=== PATIENT | female | born 1930 | race Caucasian/White ===

== ENCOUNTER → 2016-07-15 | Outpatient (CLI) | payer MEDICARE ==
[~2016-07-15] MED LIST: ASPI81 PO; MACR100C PO; OYST500T77 PO; PROBCAP4 PO; TAB-TAB PO
[2016-07-15 09:26] LABS: AUTOMATED NEUTROPHIL # 2.6 TH/MM3 (1.8-7.7); BASOPHIL # 0.1 TH/MM3 (0-0.2); BASOPHIL % 1.4 % (0.0-2.0); EOSINOPHIL # 0.1 TH/MM3 (0-0.4); EOSINOPHIL % 2.4 % (0.0-4.0); HEMATOCRIT 39.7 % (35.0-46.0); HEMO FLAGS DIFF FINAL; LYMPH % 32.8 % (9.0-44.0); LYMPHOCYTE # 1.5 TH/MM3 (1.0-4.8); MEAN CELL VOLUME 91.4 FL (80.0-100.0); MEAN CORPUSCULAR HEMOGLOBIN 29.9 PG (27.0-34.0); MEAN CORPUSCULAR HGB CONC 32.8 % (32.0-36.0); MONO % 6.9 % (0.0-8.0); NEUT % 56.5 % (16.0-70.0); PLATELET COUNT 193 TH/MM3 (150-450); RED BLOOD COUNT 4.34 MIL/MM3 (4.00-5.30); RED CELL DISTRIBUTION WIDTH 14.3 % (11.6-17.2); WHITE BLOOD COUNT 4.7 TH/MM3 (4.0-11.0)
[2016-07-15 10:06] LABS: ALKALINE PHOSPHATASE 61 U/L (45-117); ALT (GPT) 20 U/L (10-53); ANION GAP 8 MEQ/L (5-15); AST (GOT) 19 U/L (15-37); BICARBONATE 26.9 MEQ/L (21.0-32.0); BLOOD UREA NITROGEN 15 MG/DL (7-18); CHLORIDE 103 MEQ/L (98-107); GLOMERULAR FILTRATION RATE 47 ML/MIN (>89); GLUCOSE,FASTING 97 MG/DL (74-99); HDL CHOLESTEROL 72.2 MG/DL (40.0-60.0); LDL CHOLESTEROL 93 MG/DL (0-99); SODIUM (NA) 138 MEQ/L (136-145); TOTAL BILIRUBIN ADULT 0.7 MG/DL (0.2-1.0)
[2016-07-15 17:05] LABS: HEMOGLOBIN A1a 0.9 %; HEMOGLOBIN A1b 1.8 %; HEMOGLOBIN Ao 85.8 %; HEMOGLOBIN LA1C 1.8 %; HEMOGLOBIN P3 3.6 %
== END ==
LOC: PLAB 06:31
PROVIDERS: ATTEND Family Medicine
DX: E78.5 Hyperlipidemia, unspecified (principal); E03.9 Hypothyroidism, unspecified
CPT/HCPCS: 36415; 80053; 80061; 83036; 84443; 85025

== ENCOUNTER → 2017-01-21 | Outpatient (CLI) | payer MEDICARE ==
[2017-01-21 10:31] LABS: ALT (GPT) 22 U/L (10-53); ANION GAP 8 MEQ/L (5-15); AST (GOT) 21 U/L (15-37); BICARBONATE 24.9 MEQ/L (21.0-32.0); BLOOD UREA NITROGEN 13 MG/DL (7-18); CHLORIDE 104 MEQ/L (98-107); GLOMERULAR FILTRATION RATE 44 ML/MIN (>89); GLUCOSE,FASTING 93 MG/DL (74-99); POTASSIUM 3.8 MEQ/L (3.5-5.1); SODIUM (NA) 137 MEQ/L (136-145)
[2017-01-21 10:41] LABS: ALKALINE PHOSPHATASE 68 U/L (45-117); HDL CHOLESTEROL 62.3 MG/DL (40.0-60.0); LDL CHOLESTEROL 98 MG/DL (0-99); TOTAL BILIRUBIN ADULT 0.6 MG/DL (0.2-1.0)
== END ==
LOC: PLAB 06:37
PROVIDERS: ATTEND Family Medicine
DX: R89.9 Unspecified abnormal finding in specimens from other organs, systems and tissues (principal); E78.5 Hyperlipidemia, unspecified; E03.9 Hypothyroidism, unspecified
CPT/HCPCS: 36415; 80053; 80061; 84443

== ENCOUNTER 2017-02-26 11:10 | Emergency (ER) | payer MEDICARE ==
[~2017-02-26] VITALS: Ht 162.6 cm; Wt 64.0 kg
[2017-02-26 11:18] VITALS: BP 141/63; PULSE 66; RESP 19; TEMP 97.8; O2SAT 98
--- NOTE | 2017-02-26 11:23 | PD ---
HPI Chief Complaint: near-syncope Time Seen by Provider: 11:19 Travel History International Travel<30 days: No Contact w/Intl Traveler<30days: No Traveled to known affect area: No History of Present Illness HPI 86-year-old female patient presents to the ER today brought in by EMS, apparently had been feeling well today and was making a high when she started getting weak, felt woozy, and asked her to come help her. She denies any chest pains, trouble breathing, vomiting, fevers, black stools, or any other symptoms. She states that she had gone for a 3 mile walk today without issues. Modifying Factors: None Associated Signs & Symptoms: Near-syncope Risk Factors: None PFSH Past Medical History Cardiovascular Problems: No Diminished Hearing: No Deep Vein Thrombosis: Yes (LEFT LEG) Gastrointestinal Disorders: No Genitourinary: Yes Musculoskeletal: Yes Neurologic: No Reproductive: No Respiratory: No Integumentary: Yes (LICHENPLANAS) PNEUMOCCOCAL Vaccine (Year): 1 Menopausal: Yes Past Surgical History Oral Surgery: Yes (TONSILS AT AGE 7) Tonsillectomy: Yes Other Surgery: Yes Social History Alcohol Use: Yes (OCCASIONAL WINEUEN) Tobacco Use: No Substance Use: No Allergies-Medications (Allergen,Severity, Reaction): Coded Allergies: Sulfa (Sulfonamide Antibiotics) (Unverified Allergy, Severe, rash, ) Reported Meds & Prescriptions Reported Meds & Active Scripts Active Reported Calcium 500 +D (Calcium Carbonate-Cholecalciferol) 500-400 Mg-Unit Tab 1 Tab PO DAILY Multiple Vitamin 1 Tab 1 Tab PO DAILY Aspirin 81 Mg Chew 162 Mg CHEW DAILY Review of Systems Except as stated in HPI: all other systems reviewed are Neg Physical Exam Narrative GENERAL: Well-developed elderly white female patient currently in mild distress. Awake and oriented 3. SKIN: Focused skin assessment warm/dry. HEAD: Atraumatic. Normocephalic. EYES: Pupils equal and round. No scleral icterus. No injection or drainage. ENT: No nasal bleeding or discharge. Mucous membranes pink and moist. NECK: Trachea midline. No JVD. CARDIOVASCULAR: Regular rate and rhythm. No murmur appreciated. RESPIRATORY: No accessory muscle use. Clear to auscultation. Breath sounds equal bilaterally. GASTROINTESTINAL: Abdomen soft, non-tender, nondistended. Hepatic and splenic margins not palpable. MUSCULOSKELETAL: No obvious deformities. No clubbing. No cyanosis. No edema. NEUROLOGICAL: Awake and alert. No obvious cranial nerve deficits. Motor grossly within normal limits. Normal speech. No pronator drift. PSYCHIATRIC: Appropriate mood and affect; insight and judgment normal. Data Data Last Documented VS Vital Signs Date Time Temp Pulse Resp B/P (MAP) Pulse Ox O2 Delivery O2 Flow Rate FiO2 02/26/17 11:35 98 Room Air 02/26/17 11:33 68 18 126/58 (80) 75 18 126/60 (82) 68 18 110/57 (74) 02/26/17 11:18 97.8 Orders Orders Electrocardiogram (02/26/17 11:19) Complete Blood Count With Diff (02/26/17 11:19) Comprehensive Metabolic Panel (02/26/17 11:19) Magnesium (Mg) (02/26/17 11:19) Ckmb (Isoenzyme) Profile (02/26/17 11:19) Troponin I (02/26/17 11:19) Act Partial Throm Time (Ptt) (02/26/17 11:19) Prothrombin Time / Inr (Pt) (02/26/17 11:19) Urinalysis - C+S If Indicated (02/26/17 11:19) Chest, Single Ap (02/26/17 11:19) Ct Brain W/O Iv Contrast(Rout) (02/26/17 11:19) Ecg Monitoring (02/26/17 11:19) Iv Access Insert/Monitor (02/26/17 11:19) Oximetry (02/26/17 11:19) Sodium Chloride 0.9% Flush (Ns Flush) (02/26/17 11:30) Orthostatic Vital Signs (02/26/17 11:19) Labs Laboratory Tests Test 02/26/17 11:55 02/26/17 13:00 White Blood Count 6.2 TH/MM3 Red Blood Count 3.80 MIL/MM3 Hemoglobin 12.0 GM/DL Hematocrit 35.2 % Mean Corpuscular Volume 92.6 FL Mean Corpuscular Hemoglobin 31.6 PG Mean Corpuscular Hemoglobin Concent 34.2 % Red Cell Distribution Width 13.9 % Platelet Count 176 TH/MM3 Mean Platelet Volume 8.1 FL Neutrophils (%) (Auto) 67.6 % Lymphocytes (%) (Auto) 22.7 % Monocytes (%) (Auto) 7.2 % Eosinophils (%) (Auto) 1.4 % Basophils (%) (Auto) 1.1 % Neutrophils # (Auto) 4.2 TH/MM3 Lymphocytes # (Auto) 1.4 TH/MM3 Monocytes # (Auto) 0.5 TH/MM3 Eosinophils # (Auto) 0.1 TH/MM3 Basophils # (Auto) 0.1 TH/MM3 CBC Comment DIFF FINAL Differential Comment Prothrombin Time 10.9 SEC Prothromb Time International Ratio 1.0 RATIO Activated Partial Thromboplast Time 23.8 SEC Blood Urea Nitrogen 17 MG/DL Creatinine 1.18 MG/DL Random Glucose 94 MG/DL Total Protein 6.7 GM/DL Albumin 3.7 GM/DL Calcium Level 8.6 MG/DL Magnesium Level 2.0 MG/DL Alkaline Phosphatase 57 U/L Aspartate Amino Transf (AST/SGOT) 21 U/L Alanine Aminotransferase (ALT/SGPT) 20 U/L Total Bilirubin 0.6 MG/DL Sodium Level 134 MEQ/L Potassium Level 4.2 MEQ/L Chloride Level 102 MEQ/L Carbon Dioxide Level 21.7 MEQ/L Anion Gap 10 MEQ/L Estimat Glomerular Filtration Rate 44 ML/MIN Total Creatine Kinase 89 U/L Troponin I LESS THAN 0.02 NG/ML Urine Color LIGHT-YELLOW Urine Turbidity CLEAR Urine pH 7.0 Urine Specific Index 1.008 Urine Protein NEG mg/dL Urine Glucose (UA) NEG mg/dL Urine Ketones TRACE mg/dL Urine Occult Blood NEG Urine Nitrite NEG Urine Bilirubin NEG Urine Urobilinogen LESS THAN 2.0 MG/DL Urine Leukocyte Esterase NEG Urine RBC 1 /hpf Urine WBC 2 /hpf Urine Bacteria RARE /hpf Microscopic Urinalysis Comment CULT NOT INDICATED MDM Medical Decision Making Medical Screen Exam Complete: Yes Emergency Medical Condition: Yes Medical Record Reviewed: Yes Interpretation(s) EKG shows NSR, no ST elevation or depression, and no arrhythmias. No significant T-wave inversions. Laboratory Tests Test 02/26/17 11:55 02/26/17 13:00 Red Blood Count 3.80 MIL/MM3 (4.00-5.30) Activated Partial Thromboplast Time 23.8 SEC (24.3-30.1) Creatinine 1.18 MG/DL (0.50-1.00) Sodium Level 134 MEQ/L (136-145) Estimat Glomerular Filtration Rate 44 ML/MIN (>89) Troponin I LESS THAN 0.02 NG/ML Urine Ketones TRACE mg/dL (NEG) Urine Bacteria RARE /hpf (NONE) Last [address] 02/26/17 1119 Signed Impressions: Service Date/Time: Sunday, February 26, 2017 11:44 - CONCLUSION: No acute disease. Prince Kumari MD Chest X-Ray 02/26/17 1119 Signed Impressions: Service Date/Time: Sunday, February 26, 2017 11:50 - CONCLUSION: Normal examination. Prince Kumari MD Differential Diagnosis Near-syncope: Dehydration versus metabolic issues versus dysrhythmias versus ACS Narrative Course EKG did not show significant dysrhythmias. IV fluids were given in the ER with improvement in blood pressure. Patient has no focal neurological deficits. She is not complaining of headache or photophobia, no chest pains, shortness of breath, or other symptoms. Lab work did not show any significant metabolic issues or significant signs of dehydration at this time. CT of the brain is unremarkable for any signs of acute processes. At this point, I have discussed the findings with the patient and have offered to admit her as an observation for further evaluation of syncope versus very close outpatient follow-up with primary care physician for further evaluation. She states that she would rather go home, does not want to be admitted. Unfortunately, I cannot identify the cause of the near syncopal episode, an acute processes cannot be completely ruled out. Patient should return for any worsening in symptoms, chest pains, trouble breathing, or new symptoms as needed. The plan was discussed with the patient and she states understanding. Diagnosis Primary Impression: Near syncope Additional Instructions: Follow-up to primary care physician this coming week. Return for any dizziness , chest discomfort, shortness of breath, or new symptoms. Disposition: 01 DISCHARGE HOME Condition: Stable Allyson Pimentel MD Feb 26, 2017 11:23
[2017-02-26] MEDS ORDERED: CALC1TAB12 PO (11:24)
[2017-02-26] MEDS ORDERED: MULTTAB67 PO (11:24)
[2017-02-26] MEDS ORDERED: ASPI-516 CHEW (11:24)
[2017-02-26 11:25] VITALS: O2SAT 99
[2017-02-26] MEDS ORDERED: SODIUM CHLORIDE 0.9% FLUSH 10 ML FLUSH IVF PRN (11:30)
[2017-02-26 11:33] VITALS: BP_SYST 110; BP_SYST 126; BP_DIAS 57; BP_DIAS 58; BP_DIAS 60; RESP 18
--- NOTE | 2017-02-26 12:08 | RADRPT ---
EXAM DATE/TIME: 02/26/2017 11:44 [facility] COMPARISON: CT BRAIN W/O CONTRAST, September 22, 2014, 7:42. INDICATIONS : Syncopal episode today. RADIATION DOSE: 28.32 CTDIvol (mGy) MEDICAL HISTORY : Deep venous thrombosis. SURGICAL HISTORY : None. ENCOUNTER: Initial ACUITY: 1 day PAIN SCALE: 0/10 LOCATION: cranial TECHNIQUE: Multiple contiguous axial images were obtained of the head. Using automated exposure control and adj ustment of the mA and/or kV according to patient size, radiation dose was kept as low as reasonably a chievable to obtain optimal diagnostic quality images. DICOM format image data is available electro nically for review and comparison. FINDINGS: There is marked central and cortical atrophy with dilatation of ventricular and sulcal spaces. There is no parenchymal hemorrhage, acute infarction or mass lesion identified. There are no extra-axial fluid collections appreciated. The posterior fossa is unremarkable with midline fourth ventricle. T he portion of the orbits and paranasal sinuses visualized are unremarkable. CONCLUSION: No acute disease. Prince Kumari MD on February 26, 2017 at 12:07 Board Certified Radiologist. This report was verified electronically.
[2017-02-26 12:13] LABS: AUTOMATED NEUTROPHIL # 4.2 TH/MM3 (1.8-7.7); BASOPHIL # 0.1 TH/MM3 (0-0.2); BASOPHIL % 1.1 % (0.0-2.0); EOSINOPHIL # 0.1 TH/MM3 (0-0.4); EOSINOPHIL % 1.4 % (0.0-4.0); HEMATOCRIT 35.2 % (35.0-46.0); HEMO FLAGS DIFF FINAL; LYMPH % 22.7 % (9.0-44.0); LYMPHOCYTE # 1.4 TH/MM3 (1.0-4.8); MEAN CELL VOLUME 92.6 FL (80.0-100.0); MEAN CORPUSCULAR HEMOGLOBIN 31.6 PG (27.0-34.0); MEAN CORPUSCULAR HGB CONC 34.2 % (32.0-36.0); MONO % 7.2 % (0.0-8.0); NEUT % 67.6 % (16.0-70.0); PLATELET COUNT 176 TH/MM3 (150-450); RED CELL DISTRIBUTION WIDTH 13.9 % (11.6-17.2); WHITE BLOOD COUNT 6.2 TH/MM3 (4.0-11.0)
--- NOTE | 2017-02-26 12:19 | RADRPT ---
EXAM DATE/TIME: 02/26/2017 11:50 [facility] COMPARISON: CHEST SINGLE AP, September 22, 2014, 7:24. INDICATIONS : Syncopal episode today. MEDICAL HISTORY : None. SURGICAL HISTORY : None. ENCOUNTER: Initial ACUITY: 1 day PAIN SCORE: 0/10 LOCATION: Bilateral chest FINDINGS: A single view of the chest demonstrates the lungs to be symmetrically aerated without evidence of mas s, infiltrate or effusion. The cardiomediastinal contours are unremarkable. Osseous structures are intact. CONCLUSION: Normal examination. Prince Kumari MD on February 26, 2017 at 12:18 Board Certified Radiologist. This report was verified electronically.
[2017-02-26 12:24] LABS: APTT (PATIENT) 23.8 SEC (24.3-30.1); PROTHROMBIN TIME - PATIENT 10.9 SEC (9.8-11.6)
[2017-02-26 12:27] LABS: ANION GAP 10 MEQ/L (5-15); AST (GOT) 21 U/L (15-37); BICARBONATE 21.7 MEQ/L (21.0-32.0); BLOOD UREA NITROGEN 17 MG/DL (7-18); CHLORIDE 102 MEQ/L (98-107); GLOMERULAR FILTRATION RATE 44 ML/MIN (>89); POTASSIUM 4.2 MEQ/L (3.5-5.1); SODIUM (NA) 134 MEQ/L (136-145)
[2017-02-26 12:30] VITALS: BP 126/60; PULSE 70; RESP 20; O2SAT 97
[2017-02-26 12:32] LABS: ALKALINE PHOSPHATASE 57 U/L (45-117); ALT (GPT) 20 U/L (10-53); TOTAL BILIRUBIN ADULT 0.6 MG/DL (0.2-1.0)
[2017-02-26 12:36] LABS: CREATINE KINASE 89 U/L (26-192)
[2017-02-26 13:25] LABS: BACTERIA, URINE RARE /hpf; BLOOD, URINE NEG (NEG); COMMENT (UR) CULT NOT INDICATED; CULTURE IF INDICATED CULT NOT INDICATED; GLUCOSE,URINE NEG (NEG); KETONE, URINE TRACE mg/dL (NEG); NITRITE,URINE NEG (NEG); URINE COLOR LIGHT-YELLOW (YELLW/STRAW)
[2017-02-26 14:00] VITALS: BP 112/55; PULSE 66; RESP 17; O2SAT 98
--- NOTE | 2017-02-27 10:48 | EKG ---
Date Performed: 02/26/2017 Time Performed: 12:20:18 PTAGE: 86 years EKG: Sinus rhythm NORMAL ECG PREVIOUS TRACING : 09/22/2014 08.08 DOCTOR: Jean Curry Interpretating Date/Time 02/27/2017 10:46:36
== END 2017-02-26 14:23 | disposition home or self-care (01) ==
LOC: NEPC 11:10
DX: R55 Syncope and collapse (principal)
CPT/HCPCS: 70450; 71010; 80053; 81001; 82550; 83735; 84484; 85025; 85610; 85730; 93005; 99285

== ENCOUNTER → 2017-07-21 | Outpatient (CLI) | payer MEDICARE ==
[~2017-07-21] MED LIST changes: +ASPI-516 CHEW; -ASPI81 PO; +CALC1TAB12 PO; -MACR100C PO; +MULTTAB67 PO; -OYST500T77 PO; -PROBCAP4 PO; -TAB-TAB PO
[2017-07-21 10:18] LABS: AUTOMATED NEUTROPHIL # 2.9 TH/MM3 (1.8-7.7); BASOPHIL # 0.1 TH/MM3 (0-0.2); BASOPHIL % 1.8 % (0.0-2.0); EOSINOPHIL # 0.1 TH/MM3 (0-0.4); EOSINOPHIL % 1.6 % (0.0-4.0); HEMATOCRIT 38.6 % (35.0-46.0); HEMOGLOBIN 13.1 GM/DL (11.6-15.3); LYMPH % 25.7 % (9.0-44.0); LYMPHOCYTE # 1.2 TH/MM3 (1.0-4.8); MEAN CELL VOLUME 90.3 FL (80.0-100.0); MEAN CORPUSCULAR HEMOGLOBIN 30.7 PG (27.0-34.0); MEAN PLATELET VOLUME 8.1 FL (7.0-11.0); MONO % 7.1 % (0.0-8.0); MONOCYTE # 0.3 TH/MM3 (0-0.9); NEUT % 63.8 % (16.0-70.0); PLATELET COUNT 181 TH/MM3 (150-450); RED BLOOD COUNT 4.27 MIL/MM3 (4.00-5.30); RED CELL DISTRIBUTION WIDTH 13.9 % (11.6-17.2); WHITE BLOOD COUNT 4.5 TH/MM3 (4.0-11.0)
[2017-07-21 10:20] LABS: ALBUMIN 3.8 GM/DL (3.4-5.0); AST (GOT) 23 U/L (15-37); BICARBONATE 26.1 MEQ/L (21.0-32.0); BLOOD UREA NITROGEN 14 MG/DL (7-18); CALCIUM 8.8 MG/DL (8.5-10.1); CHLORIDE 105 MEQ/L (98-107); CREATININE 1.11 MG/DL (0.50-1.00); GLOMERULAR FILTRATION RATE 47 ML/MIN (>89); GLUCOSE,FASTING 95 MG/DL (74-99); SODIUM (NA) 138 MEQ/L (136-145)
[2017-07-21 10:21] LABS: CHOLESTEROL 187 MG/DL (120-200); TRIGLYCERIDES 102 MG/DL (42-150)
[2017-07-21 10:24] LABS: ALKALINE PHOSPHATASE 60 U/L (45-117); ALT (GPT) 20 U/L (10-53); CHOLESTEROL/ HDL RATIO 2.84 RATIO; HDL CHOLESTEROL 65.7 MG/DL (40.0-60.0); LDL CHOLESTEROL 101 MG/DL (0-99); TOTAL BILIRUBIN ADULT 0.6 MG/DL (0.2-1.0)
== END ==
LOC: PLAB 06:44
PROVIDERS: ATTEND Family Medicine
DX: E78.5 Hyperlipidemia, unspecified (principal); N18.9 Chronic kidney disease, unspecified
CPT/HCPCS: 36415; 80053; 80061; 85025

== ENCOUNTER → 2017-09-29 | Outpatient (CLI) | payer MEDICARE ==
[2017-09-29 14:06] LABS: BILIRUBIN, URINE NEG (NEG); BLOOD, URINE SMALL (NEG); GLUCOSE,URINE NEG (NEG); KETONE, URINE NEG (NEG); MUCUS URINE FEW /lpf (OCC); NITRITE,URINE NEG (NEG); SQUAMOUS EPITHELIAL CELL URINE <1 /hpf (0-5); URINE COLOR YELLOW (YELLW/STRAW); URINE LEUKOCYTE ESTERASE NEG (NEG)
== END ==
LOC: PLAB 08:21
DX: N39.0 Urinary tract infection, site not specified (principal)
CPT/HCPCS: 81001; 87086